=== PATIENT | female | born 1990 | race Caucasian/White ===

== ENCOUNTER 2020-11-20 11:58 | Outpatient (CLI) | payer BC, OTHER ==
[~2020-11-20 11:58] MED LIST: COLACE 100MG C100 MG PO; ZITHROMAX250 MG PO
[2020-11-20 13:04] LABS: HEMOGLOBIN 12.4 gm/dl (12.3-15.3); RED BLOOD COUNT 3.82 M/UL (4.00-5.10); WHITE BLOOD COUNT 7.9 K/UL (4.5-11.0)
[2020-11-21] MEDS ORDERED: LEVOTHYROXINE125 MCG PO (06:16)
[2020-11-21] MEDS ORDERED: PRENATAL VITAM1 EAC8 PO (06:16)
[2020-11-21] MEDS ORDERED: HYDROCODON-ACE1 EAC4 PO (14:33)
[2020-11-21] MEDS ORDERED: DOCUSATE SODIU100 MG PO (14:33)
[2020-11-21] MEDS ORDERED: IBUPROFEN600 MG PO (14:33)
== END 2020-11-20 13:00 | disposition home or self-care (01) ==
LOC: GENOP 11:58
PROVIDERS: Obstetrics & Gynecology
DX: Z01.812 Encounter for preprocedural laboratory examination (principal)
CPT/HCPCS: 36415; 81001; 85025

== ENCOUNTER 2020-11-21 05:32 | Inpatient (IN) | payer BC, OTHER ==
[~2020-11-21] VITALS: Ht 165.1 cm; Wt 104.3 kg
[2020-11-21] MEDS ORDERED: PRENATAL VITAM1 EAC8 PO (06:16)
[2020-11-21] MEDS ORDERED: LEVOTHYROXINE125 MCG PO (06:16)
[2020-11-21] MEDS ORDERED: DOCUSATE SODIU100 MG PO (14:33)
[2020-11-21] MEDS ORDERED: HYDROCODON-ACE1 EAC4 PO (14:33)
[2020-11-21] MEDS ORDERED: IBUPROFEN600 MG PO (14:33)
[2020-11-22 06:40] LABS: HEMOGLOBIN 12.2 gm/dl (12.3-15.3)
== END 2020-11-22 17:32 | disposition home or self-care (01) | DRG 788 ==
LOC: OB 05:32
PROVIDERS: ADMIT Obstetrics & Gynecology
PROC: 6A550ZT Pheresis of Cord Blood Stem Cells, Single (ICD-10-PCS; 2020-11-21)
PROC: 3E0234Z Introduction of Serum, Toxoid and Vaccine into Muscle, Percutaneous Approach (ICD-10-PCS; 2020-11-21)
PROC: 10D00Z1 Extraction of Products of Conception, Low, Open Approach (ICD-10-PCS; principal; 2020-11-21 07:30)
PROC: 3E02340 Introduction of Influenza Vaccine into Muscle, Percutaneous Approach (ICD-10-PCS; 2020-11-22)
DX: O34.211 Maternal care for low transverse scar from previous cesarean delivery (principal); N85.8 Other specified noninflammatory disorders of uterus; Z3A.39 39 weeks gestation of pregnancy; Z37.0 Single live birth; O99.284 Endocrine, nutritional and metabolic diseases complicating childbirth; E03.9 Hypothyroidism, unspecified; Z23 Encounter for immunization; Z20.822 Contact with and (suspected) exposure to COVID-19
CPT/HCPCS: 36415; 81001; 82800; 85014; 85018; 85025; 90471; 90686; 90715; 93005; C9113; G0008; J0690; J1885; J2274; J2405; J2550; J2590; J3010; J7120